=== PATIENT | female | born 1990 | race African-American/Black ===

== ENCOUNTER 2016-08-30 16:16 | Emergency (ER) | payer MEDICAID, OTHER ==
[~2016-08-30] VITALS: Ht 162.6 cm; Wt 90.0 kg
[~2016-08-30 16:16] MED LIST: HYDR50 PO; PRED50TA PO; Z.0.NO CURRENT MEDS
[2016-08-30 16:19] VITALS: BP 164/93; PULSE 81; RESP 14; TEMP 98.2; O2SAT 98
--- NOTE | 2016-08-30 17:39 | PD ---
HPI Chief Complaint: Injury Time Seen by Provider: 17:20 Travel History International Travel<30 days: No Contact w/Intl Traveler<30days: No Traveled to known affect area: No History of Present Illness HPI 26-year-old female presents emergency department for evaluation of left ankle and foot pain status post twisting injury prior to arrival. Patient reports she rolled the ankle while getting out of her car. She felt immediate pain to the lateral aspect of the ankle and lateral foot. She has difficulty weightbearing. Pain is relieved with rest and elevation. Severity 5 out of 10. She denies numbness/tingling/weakness in the extremity. [facility] Past Medical History Medical History: Denies Significant Hx Diminished Hearing: No Immunizations Current: Yes Tetanus Vaccination: < 5 Years Influenza Vaccination: No ?: Not LMP: 08/29/16 : 1 Para: 0 Past Surgical History Surgical History: No Previous Surgery Other Surgery: Yes (IUD) Social History Alcohol Use: No Tobacco Use: No Substance Use: Yes (MARIJUANA OCC) Allergies-Medications (Allergen,Severity, Reaction): Coded Allergies: No Known Allergies (Verified , 08/30/16) Reported Meds & Prescriptions Reported Meds & Active Scripts Active Review of Systems Except as stated in HPI: all other systems reviewed are Neg Physical Exam Narrative GENERAL: Well-nourished, well-developed patient. SKIN: Focused skin assessment warm/dry. HEAD: Normocephalic. EYES: No scleral icterus. No injection or drainage. NECK: Supple, trachea midline. No JVD or lymphadenopathy. CARDIOVASCULAR: Regular rate and rhythm without murmurs, gallops, or rubs. RESPIRATORY: Breath sounds equal bilaterally. No accessory muscle use. GASTROINTESTINAL: Abdomen soft, non-tender, nondistended. MUSCULOSKELETAL: No cyanosis, or edema. Left ankle notable swelling and tenderness over the lateral malleolus and base of fifth metatarsal. 2+ distal pulses. No deformity. Extremities neurovascularly intact. BACK: Nontender without obvious deformity. No CVA tenderness. Data Data Last Documented VS Vital Signs Date Time Temp Pulse Resp B/P Pulse Ox O2 Delivery O2 Flow Rate FiO2 08/30/16 17:26 Room Air 08/30/16 16:19 98.2 81 14 164/93 98 Orders Foot, Limited (2vws) (08/30/16 ) Ankle, Complete ([id number]) (08/30/16 ) [facility] Medical Decision Making Medical Screen Exam Complete: Yes Emergency Medical Condition: Yes Differential Diagnosis Ankle sprain versus fracture, midfoot sprain versus metatarsal fracture Narrative Course 26-year-old female with left ankle and foot pain status post twisting injury. Patient has notable swelling and tenderness to the lateral malleolus and the base of the fifth metatarsal. X-ray ordered and pending X-ray of the left ankle and foot are negative for fracture. Patient will be treated for ankle sprain. Sabas wrap and crutches given to patient. Instructed to take [id number] Motrin as needed. Patient verbalizes understanding and agrees to plan. Diagnosis Primary Impression: Ankle sprain Qualified Code: S93.402A - Sprain of left ankle, unspecified ligament, initial encounter Referrals: Primary Care Physician Additional Instructions: Ice and elevate the extremity use the crutches until weightbearing as possible. Review the Sabas wrap for support of the ankle. Follow-up with her primary care doctor. Take [id number] Motrin [id number] milligrams by mouth every 6-8 hours as needed for pain. Disposition: 01 DISCHARGE HOME Condition: Stable Ramonita Higgins Aug 30, 2016 17:39
--- NOTE | 2016-08-30 18:04 | RADRPT ---
EXAM DATE/TIME: 08/30/2016 17:47 [facility] COMPARISON: No previous studies available for comparison. INDICATIONS : Left foot pain post fall yesterday. MEDICAL HISTORY : None. SURGICAL HISTORY : None. ENCOUNTER: Initial ACUITY: 2 days PAIN SCORE: 10/10 LOCATION: Left foot. FINDINGS: Two view examination of the left foot demonstrates no soft tissue swelling, dislocation, or fracture. The calcaneus is intact. Bony mineralization is normal. CONCLUSION: No acute disease. Roger Morales MD on August 30, 2016 at 18:02 Board Certified Radiologist. This report was verified electronically.
--- NOTE | 2016-08-30 18:08 | RADRPT ---
EXAM DATE/TIME: 08/30/2016 17:46 [facility] COMPARISON: No previous studies available for comparison. INDICATIONS : Left ankle pain post fall yesterday. MEDICAL HISTORY : None. SURGICAL HISTORY : None. ENCOUNTER: Initial ACUITY: 2 days PAIN SCORE: 10/10 LOCATION: Left ankle. FINDINGS: There is soft-tissue swelling adjacent to the lateral malleolus. There is no acute fracture or dislo cation. The ankle mortise is intact. CONCLUSION: 1. Soft tissue swelling adjacent to the lateral malleolus. 2. No acute fracture or dislocation. Roger Morales MD on August 30, 2016 at 18:02 Board Certified Radiologist. This report was verified electronically.
== END 2016-08-30 18:33 | disposition home or self-care (01) ==
LOC: NEPK 16:16
DX: S93.402A Sprain of unspecified ligament of left ankle, initial encounter (principal); X50.1XXA Overexertion from prolonged static or awkward postures, initial encounter
CPT/HCPCS: 73610; 73620; 99283; E0113

== ENCOUNTER 2017-01-13 15:17 | Emergency (ER) | payer MEDICAID ==
[2017-01-13] MEDS ORDERED: ONDANSETRON ODT 4 MG TAB PO ONE (16:15)
--- NOTE | 2017-01-13 16:21 | PD ---
HPI Chief Complaint Vomiting blood Date Seen: Jan 13, 2017 Time Seen: 16:17 Travel History International Travel<30 Days: No Contact w/Intl Traveler<30Days: No Known Affected Area: No History of Present Illness HPI 26-year-old 2 para 1 at 19 weeks gestation who reports that she has had vomiting since this morning. She has battled nausea and vomiting of up to this point and has been well-controlled with likely just. She discontinued taking this yesterday. She has a picture that she showed me from her phone of her vomit which shows very faint pink streaking of primarily mucus emesis. She denies any fever chills, diarrhea, sickness in other family members. History Past Medical History Medical History: Denies Significant Hx Past Surgical History Surgical History: No Previous Surgery Family History Family History: Negative Social History Alcohol Use: No Tobacco Use: No Substance Abuse: No Allergies-Medications (Allergen,Severity, Reaction): Coded Allergies: No Known Allergies (Verified Allergy, Unknown, 01/13/17) Review of Systems Except as stated in HPI: all other systems reviewed are Neg Physical Exam Narrative GENERAL: Well-nourished, well-developed patient. SKIN: Warm and dry. HEAD: Normocephalic and atraumatic. EYES: No scleral icterus. No injection or drainage. ENT: No nasal drainage noted. Mucous membranes pink. Airway patent. NECK: Supple, trachea midline. No JVD. CARDIOVASCULAR: Regular rate and rhythm without murmurs, gallops, or rubs. RESPIRATORY: Breath sounds equal bilaterally. No accessory muscle use. ABDOMEN/GI: Abdomen soft, non-tender, bowel sounds present, no rebound, no guarding Gravid to [-] weeks size Fundal Height: [-] FHT's: Category: [-] Baseline: [150-] Reactive: [-] Variability: [-] Decels: [-] EXTREMITIES: No cyanosis or edema. BACK: Nontender without obvious deformity. No CVA tenderness. NEUROLOGICAL: Awake and alert. Motor and sensory grossly within normal limits. Five out of 5 muscle strength in all muscle groups. Normal speech. Data Data Vital Signs Reviewed: Yes Orders Orders Ondansetron Odt (Zofran Odt) (01/13/17 16:15) MDM Medical Record Reviewed: Yes Narrative Course / MDM Assessment: 19 week intrauterine with nausea and vomiting of Plan: The patient was given Zofran 8 mg ODT. She was instructed to resume her diclegis. Diagnosis Diagnosis: Primary Impression: 19 weeks gestation of Additional Impression: Nausea and vomiting during prior to 22 weeks gestation Disposition: 01 DISCHARGE HOME Condition: Good Syed Blanco MD Jan 13, 2017 16:21
== END 2017-01-13 16:48 | disposition home or self-care (01) ==
LOC: HOBED 15:17
DX: O21.9 Vomiting of pregnancy, unspecified (principal); Z3A.19 19 weeks gestation of pregnancy
CPT/HCPCS: 99283

== ENCOUNTER 2017-03-22 13:31 | Emergency (ER) | payer MEDICAID ==
--- NOTE | 2017-03-22 14:29 | PD ---
HPI Chief Complaint Abdominal pain and brown vaginal discharge 1 day Date Seen: Mar 22, 2017 Time Seen: 14:22 Travel History International Travel<30 Days: No Contact w/Intl Traveler<30Days: No Known Affected Area: No History of Present Illness HPI This is 27-year-old black female at 29-1/[address] York for care presents complaining of lower abdominal pain and vaginal brown discharge for 1 day. The baby is active heart rate tracing is reactive and she is not shelbi. Amnio sure was done was negative Weeks Gestation: 29 Para: 1 : 2 History Obstetric History Obstetric History One vaginal delivery Social History Alcohol Use: No Tobacco Use: No Substance Abuse: No Allergies-Medications (Allergen,Severity, Reaction): Coded Allergies: No Known Allergies (Verified Allergy, Unknown, 01/13/17) Review of Systems General / Constitutional: No: Fever, Weight Gain, Chills, Other Eyes: No: Diploplia, Blurred Vision, Visual changes, Pain, Photophobia HENT: No: Headaches, Vertigo, Lightheadedness Cardiovascular: No: Irregular Rhythm, Chest Pain or Discomfort, Palpitations, Tachycardia, Syncope, Varicosities, Edema, Cyanosis Respiratory: No: Cough, Short of Breath, Other Gastrointestinal: Abdominal Pain, No: Nausea, Vomiting, Diarrhea Genitourinary: Discharge, No: Decreased Urinary Output, Oliguria Musculoskeletal: No: Limited ROM, Weakness, Cramping, Edema, Pain Skin: No Rash, No Itching, No Dryness, No Lumps, No Change in Pigmentation, No Change in Nails, No Alopecia, No Lesions Neurologic: No: Weakness, Dizziness, Syncope, Focal Abnormalities, Coordination Problem, Headache, Slurred Speech, Seizures Psychiatric: No: Depression, Suicidal Ideations, Homicidal Ideation Endocrine: No: Heat Intolerance, Cold Intolerance, Polydipsia, Polyuria, Other Physical Exam Narrative GENERAL: Well-nourished, well-developed patient. SKIN: Warm and dry. HEAD: Normocephalic and atraumatic. EYES: No scleral icterus. No injection or drainage. ENT: No nasal drainage noted. Mucous membranes pink. Airway patent. NECK: Supple, trachea midline. No JVD. CARDIOVASCULAR: Regular rate and rhythm without murmurs, gallops, or rubs. RESPIRATORY: Breath sounds equal bilaterally. No accessory muscle use. BREASTS: Bilateral exam showed no masses , no retractions, no nipple discharge. ABDOMEN/GI: Abdomen soft, non-tender, bowel sounds present, no rebound, no guarding Gravid to [-29] weeks size Fundal Height: [29-] GENITOURINARY: External Genitalia: intact and normal in appearance Speculum exam-- no bleeding noted in the vagina only a very minimal amount of brownish discharge seen, the cervix appeared noninfected thick and closed Cervix: [Normal closed thick-] Dilatation: [-0] Effacement: [-0] Station: [-3] Membranes: [intact ] Uterine Contractions: [None-] FHT's: Category: [1-] Baseline: [-133] Reactive: [-R] Variability: [mod-] Decels: [-none] EXTREMITIES: No cyanosis or edema. BACK: Nontender without obvious deformity. No CVA tenderness. NEUROLOGICAL: Awake and alert. Motor and sensory grossly within normal limits. Five out of 5 muscle strength in all muscle groups. Normal speech. Data Data Labs Urine dipstick on OB ED is negative amnio sure negative MDM Interpretation(s) Patient is 27-year-old black female at 29-[address] flores awake presents with lower abdominal pain and vaginal brown discharge for 1 day. No active bleeding no red blood seen, no leakage of fluid, heart rate tracing is reactive and there are no contractions. Cervix is seen on speculum exam noted no infection no bleeding seen ,cervix is closed and thick, only small amount of brownish discharge seen. Urine was negative. Pain likely due to soft tissue strain Plan Plan patient be at home at bedrest for the next day or so, Tylenol as needed for pain, increase fluids for hydration, heating pad on lower abdomen is negative for symptoms. She is to follow-up with Dr. York she says tomorrow Diagnosis Diagnosis: Primary Impression: Vaginal discharge during in third trimester Additional Impression: Abdominal pain during in third trimester Disposition: 01 DISCHARGE HOME Condition: Stable Jose Olson II, MD Mar 22, 2017 14:29
== END 2017-03-22 14:44 | disposition home or self-care (01) ==
LOC: HOBED 13:31
DX: O26.893 Other specified pregnancy related conditions, third trimester (principal); N89.8 Other specified noninflammatory disorders of vagina; R10.30 Lower abdominal pain, unspecified; Z3A.29 29 weeks gestation of pregnancy
CPT/HCPCS: 84112; 99284

== ENCOUNTER 2017-04-25 12:42 | Emergency (ER) | payer MEDICAID ==
[2017-04-25] VITALS (10 sets, daily range): BP systolic 89–116; BP diastolic 51–66; PULSE 61–116; RESP 17
--- NOTE | 2017-04-25 13:23 | PD ---
HPI Chief Complaint protein in urine Date Seen: Apr 25, 2017 Time Seen: 13:45 Travel History International Travel<30 Days: No Contact w/Intl Traveler<30Days: No Known Affected Area: No History of Present Illness HPI There is a 27-year-old at 34/2 weeks gestation presented to the OB ED today due to protein in urine at the clinic today. She is a patient of Dr. Martínez. He states that when she was in his office she is on protein in her urine. He sent to the ED to make sure that she was okay. She states that her blood pressures have been normal throughout her and her previous . She has had no headaches, no spots in her vision, no weakness. No vaginal bleeding, no leakage of fluids, no dysuria, no contractions, no chest pain, no shortness of breath, no bilateral calf pain, no nausea or vomiting. She is feeling baby move. Weeks Gestation: 34 Para: 1 : 2 History Past Medical History Medical History: Denies Significant Hx Obstetric History Obstetric History Son, 7 years old, no complications, term via No history of abnormal Pap smears Diagnosed with trichomonas earlier in the test of cure to be done at 36 weeks Past Surgical History Surgical History: No Previous Surgery Family History Narrative Family History Mother-hypertension Father-DM Social History Narrative Social History Lives with her boyfriend and her son Currently does not work Denies alcohol, tobacco, or illicit drug use Alcohol Use: No Tobacco Use: No Substance Abuse: No Allergies-Medications (Allergen,Severity, Reaction): Coded Allergies: No Known Allergies (Verified Allergy, Unknown, 01/13/17) Narrative Medication Diclegis Pantoprazole vitamin Review of Systems General / Constitutional: No: Fever, Chills Eyes: No: Blurred Vision, Visual changes HENT: No: Headaches Cardiovascular: No: Chest Pain or Discomfort Respiratory: No: Short of Breath Gastrointestinal: No: Nausea, Vomiting, Abdominal Pain Genitourinary: No: Dysuria Skin: No Rash Neurologic: No: Weakness Physical Exam Narrative GENERAL: Well-nourished, well-developed patient. SKIN: Warm and dry. HEAD: Normocephalic and atraumatic. EYES: No scleral icterus. No injection or drainage. ENT: No nasal drainage noted. Mucous membranes pink. Airway patent. NECK: Supple, trachea midline. No JVD. CARDIOVASCULAR: Regular rate and rhythm without murmurs, gallops, or rubs. RESPIRATORY: Breath sounds equal bilaterally. No accessory muscle use. BREASTS: Bilateral exam showed no masses , no retractions, no nipple discharge. ABDOMEN/GI: Abdomen soft, non-tender, bowel sounds present, no rebound, no guarding Gravid to 34 weeks size FHT's: Category: 1 Baseline: 130s Reactive: yes Variability: moderate Decels: none EXTREMITIES: No cyanosis or edema. BACK: Nontender without obvious deformity. No CVA tenderness. NEUROLOGICAL: Awake and alert. Motor and sensory grossly within normal limits. Five out of 5 muscle strength in all muscle groups. Normal speech. Data Data Vital Signs Reviewed: Yes MDM Plan 27-year-old at 34/2 weeks gestation presenting due to proteinuria. Rule out preeclampsia. FHT is category 1 Patient's BP ranged from 89-116/51-66 in the ED Will order CBC, CMP, uric acid, UA, urine protein/creatinine ratio -Potassium was mildly low at 3.3, gave patient 40 mEq of potassium chloride p.o. -UA showed protein was high at 30, protein/creatinine ratio was 0.24 which is reassuring -Uric acid is normal Diagnosis Diagnosis: Primary Impression: Proteinuria Disposition: 01 DISCHARGE HOME Condition: Stable Cally Mistry MD R1 Apr 25, 2017 13:23
[2017-04-25 14:04] LABS: AUTOMATED NEUTROPHIL # 4.9 TH/MM3 (1.8-7.7); BASOPHIL % 0.4 % (0.0-2.0); EOSINOPHIL # 0.1 TH/MM3 (0-0.4); EOSINOPHIL % 0.9 % (0.0-4.0); HEMATOCRIT 30.6 % (35.0-46.0); HEMOGLOBIN 10.3 GM/DL (11.6-15.3); LYMPH % 21.4 % (9.0-44.0); LYMPHOCYTE # 1.5 TH/MM3 (1.0-4.8); MEAN CELL VOLUME 81.4 FL (80.0-100.0); MEAN CORPUSCULAR HEMOGLOBIN 27.4 PG (27.0-34.0); MEAN CORPUSCULAR HGB CONC 33.6 % (32.0-36.0); MEAN PLATELET VOLUME 8.1 FL (7.0-11.0); MONO % 6.9 % (0.0-8.0); MONOCYTE # 0.5 TH/MM3 (0-0.9); NEUT % 70.4 % (16.0-70.0); PLATELET COUNT 254 TH/MM3 (150-450); RED BLOOD COUNT 3.76 MIL/MM3 (4.00-5.30); RED CELL DISTRIBUTION WIDTH 13.5 % (11.6-17.2); WHITE BLOOD COUNT 6.9 TH/MM3 (4.0-11.0)
[2017-04-25 14:16] LABS: BACTERIA, URINE FEW /hpf; BILIRUBIN, URINE NEG (NEG); BLOOD, URINE NEG (NEG); GLUCOSE,URINE NEG (NEG); KETONE, URINE NEG (NEG); MUCUS URINE MANY /lpf (OCC); NITRITE,URINE NEG (NEG); PH, URINE 6.5 (5.0-8.5); SQUAMOUS EPITHELIAL CELL URINE 13 /hpf (0-5); TRANSITIONAL EPI CELLS, URINE <1 /hpf; URINE COLOR YELLOW (YELLW/STRAW); URINE LEUKOCYTE ESTERASE MOD (NEG)
[2017-04-25 14:33] LABS: ALBUMIN 2.5 GM/DL (3.4-5.0); ALT (GPT) 13 U/L (10-53); AST (GOT) 17 U/L (15-37); BICARBONATE 22.2 MEQ/L (21.0-32.0); BLOOD UREA NITROGEN 6 MG/DL (7-18); CALCIUM 8.2 MG/DL (8.5-10.1); CHLORIDE 103 MEQ/L (98-107); CREATININE 0.55 MG/DL (0.50-1.00); GLOMERULAR FILTRATION RATE 163 ML/MIN (>89); GLUCOSE,RANDOM 81 MG/DL (74-106); SODIUM (NA) 135 MEQ/L (136-145)
[2017-04-25 14:36] LABS: ALKALINE PHOSPHATASE 106 U/L (45-117); TOTAL BILIRUBIN ADULT 0.3 MG/DL (0.2-1.0); TOTAL PROTEIN 7.4 GM/DL (6.4-8.2)
[2017-04-25] MEDS ORDERED: POTASSIUM CHLORIDE 10 MEQ CONTROLLED RELEASE TAB PO ONE (15:00)
== END 2017-04-25 15:45 | disposition home or self-care (01) ==
LOC: HOBED 12:42
DX: O12.13 Gestational proteinuria, third trimester (principal); Z3A.34 34 weeks gestation of pregnancy
CPT/HCPCS: 36415; 59025; 80053; 81001; 82570; 84156; 84550; 85025

== ENCOUNTER 2017-05-30 15:29 | Emergency (ER) | payer MEDICAID ==
[2017-05-30] VITALS (12 sets, daily range): PULSE 99–115
--- NOTE | 2017-05-30 17:08 | PD ---
HPI Travel History International Travel<30 Days: No Contact w/Intl Traveler<30Days: No Known Affected Area: No History of Present Illness HPI 27-year-old at 39/2 weeks presents to the ED for contractions. She is a patient of Dr. Flores. Patient reports that she started having irregular contractions yesterday. She continued to have contractions today. She reports they are closer and more intense, 10-15 min apart. She states that it is harder to walk because of the pain. She reports losing her mucous plug today. She endorses good movement. She denies leakage of fluid, vaginal bleeding , vaginal discharge, dysuria, and fevers. History Past Medical History Medical History: Denies Significant Hx Obstetric History Obstetric History 1 uncomplicated vaginal delivery in 2009 Past Surgical History Surgical History: No Previous Surgery Family History Family History: Negative Social History Alcohol Use: No Tobacco Use: No Substance Abuse: Yes (Yes (History of marijuana use, last use was reported in 12/23)) Allergies-Medications (Allergen,Severity, Reaction): Coded Allergies: No Known Allergies (Verified Allergy, Unknown, 01/13/17) Review of Systems Except as stated in HPI: all other systems reviewed are Neg Physical Exam Vital Signs Date Time Temp Pulse Resp B/P (MAP) Pulse Ox O2 Delivery O2 Flow Rate FiO2 05/30/17 16:45 110 05/30/17 16:40 111 05/30/17 16:35 114 05/30/17 16:30 113 05/30/17 16:25 108 05/30/17 16:20 115 05/30/17 16:15 112 Narrative GENERAL: Well-nourished, well-developed patient. SKIN: Warm and dry. HEAD: Normocephalic and atraumatic. EYES: No scleral icterus. No injection or drainage. ENT: No nasal drainage noted. Mucous membranes pink. Airway patent. NECK: Supple, trachea midline. No JVD. CARDIOVASCULAR: Regular rate and rhythm without murmurs, gallops, or rubs. RESPIRATORY: Breath sounds equal bilaterally. No accessory muscle use. ABDOMEN/GI: Abdomen soft, non-tender, bowel sounds present, no rebound, no guarding GENITOURINARY: External Genitalia: intact and normal in appearance Cervix: Posterior Dilatation: 3 Effacement: 60% Station: Posterior Presentation: Vertex Membranes: Intact Uterine Contractions: Every 3 minutes FHT's: Category: 1 Baseline: 120 Reactive: Yes Variability: Moderate Decels: No EXTREMITIES: No cyanosis or edema. BACK: Nontender without obvious deformity. No CVA tenderness. NEUROLOGICAL: Awake and alert. Motor and sensory grossly within normal limits. Five out of 5 muscle strength in all muscle groups. Normal speech. Data Data Orders Orders Vital Signs (Adult) .ON ADMISSION (05/30/17 16:46) ^ Labor Status (05/30/17 16:46) Heart (05/30/17 16:46) Urinalysis - C+S If Indicated (05/30/17 16:46) ^ Non Stress Test (05/30/17 16:46) ^ Hydration (05/30/17 16:46) MDM Plan 27-year-old at 39/2 weeks presents to the ED for contractions. She is a patient of Dr. Flores. Intrauterine FHTs: 120, category 1 3cm cervical dilation on digital exam No cervical change after 1 hour observation GBS unknown, will obtain records D/C and follow-up with BAR MANAGER Diagnosis Diagnosis: Primary Impression: Uterine contractions during Disposition: DISCHARGE HOME Condition: Stable Vera Myers MD R1 May 30, 2017 17:08
[2017-05-30 18:19] LABS: BILIRUBIN, URINE NEG (NEG); BLOOD, URINE NEG (NEG); GLUCOSE,URINE NEG (NEG); KETONE, URINE TRACE mg/dL (NEG); MUCUS URINE MOD /lpf (OCC); NITRITE,URINE NEG (NEG); SQUAMOUS EPITHELIAL CELL URINE 4 /hpf (0-5); URINE COLOR YELLOW (YELLW/STRAW); URINE LEUKOCYTE ESTERASE NEG (NEG)
== END 2017-05-30 17:24 | disposition home or self-care (01) ==
LOC: HOBED 15:29
DX: O47.1 False labor at or after 37 completed weeks of gestation (principal); Z3A.39 39 weeks gestation of pregnancy
CPT/HCPCS: 59025; 81001

== ENCOUNTER 2017-06-01 15:09 | Inpatient (IN) | payer MEDICAID ==
[2017-06-01] VITALS (7 sets, daily range): BP systolic 97–115; BP diastolic 61–67; PULSE 99–113; RESP 16–18; TEMP 98.1
[2017-06-01] MEDS: LACTATED RINGER'S 1000 ML IV SCH ×2 (16:00→17:01)
[2017-06-01 16:16] LABS: AUTOMATED NEUTROPHIL # 5.2 TH/MM3 (1.8-7.7); BASOPHIL % 0.5 % (0.0-2.0); EOSINOPHIL # 0.1 TH/MM3 (0-0.4); EOSINOPHIL % 1.3 % (0.0-4.0); HEMATOCRIT 32.5 % (35.0-46.0); HEMOGLOBIN 10.8 GM/DL (11.6-15.3); LYMPH % 22.3 % (9.0-44.0); LYMPHOCYTE # 1.7 TH/MM3 (1.0-4.8); MEAN CELL VOLUME 78.7 FL (80.0-100.0); MEAN CORPUSCULAR HEMOGLOBIN 26.2 PG (27.0-34.0); MEAN CORPUSCULAR HGB CONC 33.3 % (32.0-36.0); MEAN PLATELET VOLUME 8.5 FL (7.0-11.0); MONO % 6.3 % (0.0-8.0); MONOCYTE # 0.5 TH/MM3 (0-0.9); NEUT % 69.6 % (16.0-70.0); PLATELET COUNT 298 TH/MM3 (150-450); RED BLOOD COUNT 4.13 MIL/MM3 (4.00-5.30); WHITE BLOOD COUNT 7.5 TH/MM3 (4.0-11.0)
--- NOTE | 2017-06-01 16:56 | HHI.HP ---
HPI Chief Complaint induction of labor term Date Seen: Jun 01, 2017 Travel History International Travel<30 Days: No Contact w/Intl Traveler<30Days: No History of Present Illness HPI 39 4/7 gestation pt has been contacting gabrielle in office /soft post denies ROM positive movement Weeks Gestation: 39 Para: 1 : 2 Miscarriage: 0 : 0 History Past Medical History Medical History: Denies Significant Hx Obstetric History Obstetric History labs negative positive trich 11/2016, DEQUAN negative 12/2016 and 05/2017 GBS negative Past Surgical History Narrative Surgical none Family History Narrative Family History Hypertension- mother and maternal grandmother Diabetes melitis- father Colon Cancer Maternal grandfather Social History Alcohol Use: No Tobacco Use: No Substance Abuse: Yes Allergies-Medications (Allergen,Severity, Reaction): Coded Allergies: Penicillins (Verified Allergy, Severe, 06/01/17) itching amoxicillin (Verified Allergy, Severe, 06/01/17) itching Home Meds Active Scripts Oxycodone HCl/Acetaminophen (Oxycodone-Acetaminophen 5-325) 5 Mg-325 Mg Tablet, 1 TAB PO Q4H Y for moderate pain, #12 TAB Prov:Millie York MD 06/02/17 Ibuprofen (Ibuprofen) 800 Mg Tab, 800 MG PO Q8H Y for CRAMPING, #30 TAB Prov:Millie York MD 06/02/17 Reported Medications Mv & Min W/Fe Prot Hardwick ( + Complete Multi 18-0.8 & 290 mg) 18 Mg Iron-800 Mcg-290 Mg-225 Mg Ge 06/01/17 Ferrous Sulfate (Iron) 18 Mg Tab 06/01/17 Pantoprazole (Protonix) 40 Mg Tab, 40 MG PO BID for Reflux, #30 TAB 0 Refills 06/01/17 Review of Systems Except as stated in HPI: all other systems reviewed are Neg Physical Exam Narrative GENERAL: Well-nourished, well-developed patient. SKIN: Warm and dry. HEAD: Normocephalic and atraumatic. EYES: No scleral icterus. No injection or drainage. ENT: No nasal drainage noted. Airway patent. CARDIOVASCULAR: Regular rate and rhythm without murmurs, gallops, or rubs. RESPIRATORY: Breath sounds equal bilaterally. No accessory muscle use. ABDOMEN/GI: Abdomen soft, non-tender, bowel sounds present, no rebound, no guarding Gravid to [-40] weeks size Fundal Height: [40-] GENITOURINARY: External Genitalia: intact and normal in appearance BUS glands: [-] Cervix: soft Dilatation: 4 Effacement: 70 Station: -2 Presentation:v Membranes: intact Uterine Contractions: mild irreg FHT's: Category:1 Baseline: 135-145 Reactive: yes Variability: moderate Decels: none EXTREMITIES: No cyanosis or edema. BACK: Nontender without obvious deformity. NEUROLOGICAL: Awake and alert. Motor and sensory grossly within normal limits. Five out of 5 muscle strength in all muscle groups. Normal speech. Caprini VTE Risk Assessment Caprini VTE Risk Assessment: No/Low Risk (score <= 1) Caprini Risk Assessment Model Point Value = 1 Point Value = 2 Point Value = 3 Point Value = 5 Age 41-60 Minor surgery BMI > 25 kg/m2 Swollen legs Varicose veins or History of unexplained or recurrent spontaneous Oral contraceptives or hormone replacement Sepsis (< 1 month) Serious lung disease, including pneumonia (< 1 month) Abnormal pulmonary function Acute myocardial infarction Congestive heart failure (< 1 month) History of inflammatory bowel disease Medical patient at bed rest Age 61-74 Arthroscopic surgery Major open surgery (> 45 min) Laparoscopic surgery (> 45 min) Malignancy Confined to bed (> 72 hours) Immobilizing plaster cast Central venous access Age >= 75 History of VTE Family history of VTE Factor V Leiden Prothrombin [id number] Lupus anticoagulant Anticardiolipin antibodies Elevated serum homocysteine Heparin-induced thrombocytopenia Other congenital or acquired thrombophilia Stroke (< 1 month) Elective arthroplasty Hip, pelvis, or leg fracture Acute spinal cord injury (< 1 month) Prophylaxis Regimen Total Risk Factor Score Risk Level Prophylaxis Regimen 0-1 Low Early ambulation 2 Moderate Order ONE of the following: *Sequential Compression Device (SCD) *Heparin 5000 units SQ BID 3-4 Higher Order ONE of the following medications: *Heparin 5000 units SQ TID *Enoxaparin/Lovenox 40 mg SQ daily (WT < 150 kg, CrCl > 30 mL/min) *Enoxaparin/Lovenox 30 mg SQ daily (WT < 150 kg, CrCl > 10-29 mL/min) *Enoxaparin/Lovenox 30 mg SQ BID (WT < 150 kg, CrCl > 30 mL/min) AND/OR *Sequential Compression Device (SCD) 5 or more Highest Order ONE of the following medications: *Heparin 5000 units SQ TID (Preferred with Epidurals) *Enoxaparin/Lovenox 40 mg SQ daily (WT < 150 kg, CrCl > 30 mL/min) *Enoxaparin/Lovenox 30 mg SQ daily (WT < 150 kg, CrCl > 10-29 mL/min) *Enoxaparin/Lovenox 30 mg SQ BID (WT < 150 kg, CrCl > 30 mL/min) AND *Sequential Compression Device (SCD) Data Data Vital Signs Reviewed: Yes Orders Orders Admit To Inpatient (06/01/17 ) Vital Signs (Adult) .Per protocol (06/01/17 15:42) Heart (06/01/17 15:42) Amnioinfusion (06/01/17 15:42) Urinary Catheter Management .ONCE (06/01/17 15:42) Complete Blood Count With Diff (06/01/17 15:42) Hold Clot (06/01/17 15:42) Abo/Rh Blood Type (06/01/17 15:42) Urinalysis - C+S If Indicated (06/01/17 15:42) Drug Screen, Random Urine (06/01/17 15:42) Ob/Psych Drug Screen, Urine (06/01/17 15:42) Resp Oxygen Non Rebreathe Mask (06/01/17 ) ^ Epidural / Intrathecal Infus (06/01/17 15:42) Specimen To Be Collected PRN (06/01/17 15:42) Specimen To Be Collected PRN (06/01/17 15:42) Diet Clear Liquid (06/01/17 Dinner) ^ Non Stress Test (06/01/17 16:40) Response To Medication .Post New Med Administration, Reaction (06/01/17 16:40) ^ Discontinue Medication (06/01/17 16:40) Instruction (06/01/17 16:40) Group B Strep: Negative Labs Laboratory Tests Test 06/01/17 15:37 White Blood Count 7.5 Red Blood Count 4.13 Hemoglobin 10.8 Hematocrit 32.5 Mean Corpuscular Volume 78.7 Mean Corpuscular Hemoglobin 26.2 Mean Corpuscular Hemoglobin Concent 33.3 Red Cell Distribution Width 14.0 Platelet Count 298 Mean Platelet Volume 8.5 Neutrophils (%) (Auto) 69.6 Lymphocytes (%) (Auto) 22.3 Monocytes (%) (Auto) 6.3 Eosinophils (%) (Auto) 1.3 Basophils (%) (Auto) 0.5 Neutrophils # (Auto) 5.2 Lymphocytes # (Auto) 1.7 Monocytes # (Auto) 0.5 Eosinophils # (Auto) 0.1 Basophils # (Auto) 0.0 CBC Comment DIFF FINAL Differential Comment Assessment/Plan Problem List: (1) Term ICD Codes: Z34.80 - Encounter for supervision of other normal , unspecified trimester (2) Encounter for induction of labor ICD Codes: Z34.90 - Encounter for supervision of normal , unspecified , unspecified trimester Assessment and Plan in the office pt was shelbi irregularly, sve 470/-2/soft pt admitted for induction of labor low dose pitocin started and will be increased at 3am with arom plan to progress to Discharge Planning in 2 days pending delivery Kimmie Bryant Jun 01, 2017 16:56
[2017-06-01] MEDS ORDERED: LIDOCAINE HCL 1% 50 ML VIAL INFIL PRN (17:00)
[2017-06-01] MEDS ORDERED: OXYTOCIN 30 UNITS 500ML PREMIX IV ONE (17:00)
[2017-06-01] MEDS ORDERED: LIDOCAINE HCL 1% 50 ML VIAL I-DERMAL PRN (17:00)
[2017-06-01] MEDS ORDERED: CITRIC ACID-SODIUM CITRATE LIQ 30 ML UDC PO SCH (17:00)
[2017-06-01] MEDS ORDERED: MINERAL OIL 10 ML VIAL TOPICAL PRN (17:00)
[2017-06-01] MEDS ORDERED: NS 500 ML BOLUS IV PRN (17:15)
[2017-06-01] MEDS ORDERED: NS 1000 ML IV PRN (17:15)
[2017-06-01] MEDS ORDERED: LACTATED RINGER'S 1000 ML BOLUS IV PRN (17:15)
[2017-06-01] MEDS ORDERED: PROT40TA PO (17:45)
[2017-06-01] MEDS ORDERED: PREN1PAK9 (17:47)
[2017-06-01] MEDS ORDERED: IRON18TA (17:47)
[2017-06-01] MEDS ORDERED: OXYTOCIN 30 UNITS/NS 500ML PREMIX IV PRN (18:00)
[2017-06-01 18:37] LABS: BILIRUBIN, URINE NEG (NEG); BLOOD, URINE NEG (NEG); GLUCOSE,URINE NEG (NEG); KETONE, URINE NEG (NEG); NITRITE,URINE NEG (NEG); PH, URINE 6.5 (5.0-8.5); SQUAMOUS EPITHELIAL CELL URINE <1 /hpf (0-5); URINE COLOR LIGHT-YELLOW (YELLW/STRAW); URINE LEUKOCYTE ESTERASE NEG (NEG)
[2017-06-01] MEDS ORDERED: ZOLPIDEM TARTRATE 5 MG TAB PO PRN (21:00)
[2017-06-01] MEDS ORDERED: fentaNYL 2MCG-BUPIV 0.125% INJ 100 ML ONE (23:52)
[2017-06-02] VITALS (72 sets, daily range): BP systolic 81–125; BP diastolic 28–83; PULSE 82–246; RESP 18–20; TEMP 97.7–98; O2SAT 97–100
[2017-06-02] MEDS ORDERED: LIDOCAINE HCL 1% PF 5 ML AMPULE ONE
[2017-06-02] MEDS ORDERED: LIDOCAINE 2%/EPINEPHrine PF 1:200,000 20ML SDV ONE
[2017-06-02] MEDS ORDERED: DO NOT ADMINISTER ANTICOAGULANTS PRN
[2017-06-02] MEDS ORDERED: NO SYSTEM NARCOTICS PRN
[2017-06-02] MEDS ORDERED: fentaNYL 2MCG-BUPIV 0.125% 100 ML EPIDURAL PRN
[2017-06-02] MEDS: ePHEDrine/NS 25 MG/5 ML SYRINGE IV PUSH PRN ×2 (01:10→01:46)
[2017-06-02] MEDS: LACTATED RINGER'S 1000 ML IV SCH (01:10)
[2017-06-02] MEDS ORDERED: LIDOCAINE HCL 1% 50 ML VIAL ONE (04:41)
--- NOTE | 2017-06-02 05:24 | PD.OB.DELI ---
Weeks gestation: 39 Gest age assessed date: Jun 01, 2017 Pt started active labor?: Yes Active labor start date: Jun 02, 2017 Medical induction of labor?: Yes Medical induction start date: Jun 01, 2017 Artificial rupture of membrane: No Anesthesia: Epidural Episiotomy: None Vaginal Delivery: Normal Presentation: Occiput anterior Nuchal Cord: x1 Delayed cord clamping (45 sec): Yes Shoulder Dystocia: Priti maneuver done Infant: Female Delivery date: Jun 02, 2017 Delivery time: 05:04 One Minute : 8 Five Minute : 9 Placenta: Spontaneous delivery, Intact, 3 vessel cord Laceration: No lacerations Estimated blood loss: 300 Additional Information Nice delivery Mild shoulder dystocia relieved in 30 seconds Good richard reflex No lacerations at all Millie York MD Jun 02, 2017 05:24
[2017-06-02] MEDS ORDERED: ACETAMINOPHEN 325 MG TAB PO PRN (05:30)
[2017-06-02] MEDS ORDERED: WITCH HAZEL 50%/GLYCERIN 12.5% 40 PAD JAR TOPICAL PRN (05:30)
[2017-06-02] MEDS ORDERED: ALUMINUM/MAGNESIUM/SIMETH 30 ML CUP PO PRN (05:30)
[2017-06-02] MEDS ORDERED: BENZOCAINE 20% TOPICAL SPRAY 60 ML CAN TOPICAL PRN (05:30)
[2017-06-02] MEDS ORDERED: OXYTOCIN 30 UNITS-500ML PREMIX 500 ML IV SCH (05:30)
[2017-06-02] MEDS ORDERED: oxyCODONE/ACETAMINOPHEN 5 MG/325 MG TAB PO PRN (05:30)
[2017-06-02] MEDS ORDERED: ZOLPIDEM TARTRATE 5 MG TAB PO PRN (05:30)
[2017-06-02] MEDS ORDERED: OXYTOCIN 30 UNITS-500ML PREMIX 500 ML IV ONE (05:30)
[2017-06-02] MEDS ORDERED: ONDANSETRON ODT 4 MG TAB PO PRN (05:30)
[2017-06-02] MEDS ORDERED: SODIUM CHLORIDE 0.9% FLUSH 10 ML FLUSH IV FLUSH PRN (05:30)
[2017-06-02] MEDS ORDERED: IBUP1TAB7 PO (08:32)
[2017-06-02] MEDS ORDERED: OXYC1TAB63 PO (08:32)
[2017-06-02] MEDS ORDERED: SODIUM CHLORIDE 0.9% FLUSH 10 ML FLUSH IV FLUSH SCH (09:00)
--- NOTE | 2017-06-02 09:02 | HHI.DCPOC ---
Discharge Care Plan Diagnosis: (1) Normal vaginal delivery (2) Anemia Your Health Problems Are: Vaginal delivery Report Symptoms to Your Doctor -Temperature above 100.5 degrees -Redness, of incision or excessive or foul smelling drainage -Unusual pain or calf pain -Increased vaginal bleeding -Painful or difficulty urinating -Feelings of extreme sadness or anxiety after 2 weeks Goals to Promote Your Health * To prevent worsening of your condition and complications * To maintain your health at the optimal level Directions to Meet Your Goals Take your medications as prescribed Follow your dietary instruction Follow activity as directed Ensure plenty of rest for recovery Drink fluids for hydration Keep your appointments as scheduled Take your immunizations and boosters as scheduled If your symptoms worsen call your PCP, if no PCP go to Urgent Care Center or Emergency Room Smoking is Dangerous to Your Health. Avoid second hand smoke Call the 24-hour crisis hotline for domestic abuse at Kimmie Bryant Jun 02, 2017 09:02
[2017-06-02] MEDS: IBUPROFEN 800 MG TAB PO PRN ×2 (12:30→20:33)
[2017-06-02] MEDS: DOCUSATE SODIUM 50 MG/SENNA 8.6 MG TAB PO PRN (12:37)
[2017-06-02] MEDS ORDERED: MEASLES, MUMPS, RUBELLA VACCINE 0.5 ML VIAL SQ ONE (16:00)
[2017-06-02] MEDS ORDERED: DIPHTH/TETANUS/ACEL PERTUSSIS (BOOSTER) 0.5 ML VIAL/PFS IM ONE (16:00)
[2017-06-02] MEDS: oxyCODONE/ACETAMINOPHEN 5 MG/325 MG TAB PO PRN (20:33)
[2017-06-03] MEDS: oxyCODONE/ACETAMINOPHEN 5 MG/325 MG TAB PO PRN ×3 (01:56→22:28)
[2017-06-03 08:00] VITALS: BP 133/84; PULSE 77; RESP 20; TEMP 97.8
[2017-06-03] MEDS: IBUPROFEN 800 MG TAB PO PRN ×2 (08:29→17:25)
[2017-06-03] MEDS: DOCUSATE SODIUM 50 MG/SENNA 8.6 MG TAB PO PRN (08:29)
--- NOTE | 2017-06-03 09:20 | HHI.OB ---
Subjective Post Day: 1 Remarks s/p full term vaginal delivery of healthy female infant Objective Vitals/I&O Vital Signs Date Time Temp Pulse Resp B/P (MAP) Pulse Ox O2 Delivery O2 Flow Rate FiO2 06/03/17 08:00 133/84 (100) 06/03/17 08:00 97.8 77 20 06/02/17 20:00 97 119/76 (90) 06/02/17 20:00 98.0 18 Objective Remarks GENERAL: Well-nourished, well-developed patient. . CARDIOVASCULAR: Regular rate and rhythm without murmurs, gallops, or rubs. RESPIRATORY: Breath sounds equal bilaterally. No accessory muscle use. ABDOMEN/GI: Abdomen soft, non-tender. Fundus: Firm, non-tender at umbilicus. GENITOURINARY: Light to moderate bleeding. EXTREMITIES: No cyanosis or edema, non-tender, without signs of DVT. Medications and IVs Current Medications Medications (Trade) Dose Ordered Sig/Brenden Route Start Time Stop Time Status Last Admin (NS Flush) 2 ml BID IV FLUSH 06/02/17 09:00 (NS Flush) 2 ml UNSCH PRN IV FLUSH 06/02/17 05:30 (Tylenol) 650 mg Q4H PRN PO 06/02/17 05:30 06/02/17 15:42 (Motrin) 800 mg Q8H PRN PO 06/02/17 05:30 06/03/17 08:29 (Percocet 5-325 Mg) 1 tab Q4H PRN PO 06/02/17 05:30 06/03/17 08:29 (Percocet 5-325 Mg) 2 tab Q4H PRN PO 06/02/17 05:30 (Americaine 20% Top Spr) 1 spray Q4H PRN TOPICAL 06/02/17 05:30 (Tucks Pads) 1 applic QID PRN TOPICAL 06/02/17 05:30 (Marci-Colace) 2 tab Q12H PRN PO 06/02/17 05:30 06/03/17 08:29 (Ambien) 5 mg HS PRN PO 06/02/17 05:30 (Mag-Al Plus Susp Liq) 15 ml Q8H PRN PO 06/02/17 05:30 (Zofran Odt) 4 mg Q6H PRN PO 06/02/17 05:30 Assessment/Plan Problem List: (1) Normal vaginal delivery ICD Codes: O80 - Encounter for full-term uncomplicated delivery Status: Acute (2) Term ICD Codes: Z34.80 - Encounter for supervision of other normal , unspecified trimester (3) Encounter for induction of labor ICD Codes: Z34.90 - Encounter for supervision of normal , unspecified , unspecified trimester Assessment and Plan PPD#1 continue supportive care anticipate d/c to home PPD#2 Discharge Planning tmrw Yola Zambrnao MD Jun 03, 2017 09:20
[2017-06-03 20:00] VITALS: BP 137/87; PULSE 73; RESP 18; TEMP 98.3
[2017-06-04] MEDS: IBUPROFEN 800 MG TAB PO PRN (01:11)
[2017-06-04] MEDS: oxyCODONE/ACETAMINOPHEN 5 MG/325 MG TAB PO PRN (07:39)
[2017-06-04 08:00] VITALS: BP 124/77; PULSE 81; RESP 16; TEMP 97.9
--- NOTE | 2017-06-04 08:35 | HHI.OB ---
Subjective Post Day: 2 Remarks doing well but does c/o of back pain at epidural site, inconsistent KANG symptoms , would like evaluation with anesthesia team before discharge Objective Vitals/I&O Vital Signs Date Time Temp Pulse Resp B/P (MAP) Pulse Ox O2 Delivery O2 Flow Rate FiO2 06/03/17 20:00 98.3 73 18 137/87 (104) Objective Remarks GENERAL: Well-nourished, well-developed patient. . CARDIOVASCULAR: Regular rate and rhythm without murmurs, gallops, or rubs. RESPIRATORY: Breath sounds equal bilaterally. No accessory muscle use. ABDOMEN/GI: Abdomen soft, non-tender. Fundus: Firm, non-tender at umbilicus. GENITOURINARY: Light to moderate bleeding. EXTREMITIES: No cyanosis or edema, non-tender, without signs of DVT. BACK: no CVA tenderness, no bruising or swelling, no tenderness to palpation Medications and IVs Current Medications Medications (Trade) Dose Ordered Sig/Brenden Route Start Time Stop Time Status Last Admin (NS Flush) 2 ml BID IV FLUSH 06/02/17 09:00 (NS Flush) 2 ml UNSCH PRN IV FLUSH 06/02/17 05:30 (Tylenol) 650 mg Q4H PRN PO 06/02/17 05:30 06/02/17 15:42 (Motrin) 800 mg Q8H PRN PO 06/02/17 05:30 06/04/17 01:11 (Percocet 5-325 Mg) 1 tab Q4H PRN PO 06/02/17 05:30 06/04/17 07:39 (Percocet 5-325 Mg) 2 tab Q4H PRN PO 06/02/17 05:30 (Americaine 20% Top Spr) 1 spray Q4H PRN TOPICAL 06/02/17 05:30 (Tucks Pads) 1 applic QID PRN TOPICAL 06/02/17 05:30 (Marci-Colace) 2 tab Q12H PRN PO 06/02/17 05:30 06/03/17 08:29 (Ambien) 5 mg HS PRN PO 06/02/17 05:30 (Mag-Al Plus Susp Liq) 15 ml Q8H PRN PO 06/02/17 05:30 (Zofran Odt) 4 mg Q6H PRN PO 06/02/17 05:30 Assessment/Plan Problem List: (1) Normal vaginal delivery ICD Codes: O80 - Encounter for full-term uncomplicated delivery Status: Acute (2) Term ICD Codes: Z34.80 - Encounter for supervision of other normal , unspecified trimester (3) Encounter for induction of labor ICD Codes: Z34.90 - Encounter for supervision of normal , unspecified , unspecified trimester Assessment and Plan PPD#2 continue supportive care will have anesthesia see pt today, if cleared by them will discharge to home Discharge Planning routine Yola Zambrano MD Jun 04, 2017 08:35
== END 2017-06-04 11:32 | disposition home or self-care (01) | DRG 775 ==
LOC: H2EA 15:09 → H1EA 06-02 07:48
PROVIDERS: ADMIT Obstetrics & Gynecology; ATTEND Obstetrics & Gynecology
PROC: 10907ZC Drainage of Amniotic Fluid, Therapeutic from Products of Conception, Via Natural or Artificial Opening (ICD-10-PCS; 2017-06-01)
PROC: 00HU33Z Insertion of Infusion Device into Spinal Canal, Percutaneous Approach (ICD-10-PCS; 2017-06-01)
PROC: 3E0R3BZ Introduction of Anesthetic Agent into Spinal Canal, Percutaneous Approach (ICD-10-PCS; 2017-06-01)
PROC: 10E0XZZ Delivery of Products of Conception, External Approach (ICD-10-PCS; principal; 2017-06-02)
DX: O69.81X0 Labor and delivery complicated by cord around neck, without compression, not applicable or unspecified (principal); O90.81 Anemia of the puerperium; O66.0 Obstructed labor due to shoulder dystocia; Z37.0 Single live birth; Z3A.39 39 weeks gestation of pregnancy; Z23 Encounter for immunization; Z83.3 Family history of diabetes mellitus
CPT/HCPCS: 59025; 80307; 81001; 85025; 86900; 86901; 90715; G0481; J2590; J7120